=== PATIENT | female | born 1995 ===

== ENCOUNTER 2023-05-13 04:26 | Inpatient (IN) | payer OTHER ==
[2023-05-13] MEDS ORDERED: Misoprostol 200 MCG Tab PO PRN (06:04)
[2023-05-13] MEDS ORDERED: Carboprost Tromethamine 250 MCG/1 mL Vial IM PRN (06:04)
[2023-05-13] MEDS ORDERED: Methylergonovine 0.2 MG/1 ML Amp IM PRN (06:04)
[2023-05-13] MEDS ORDERED: Sodium Chloride 0.9% 10 ML Syringe FLUSH PRN (06:04)
[2023-05-13] MEDS ORDERED: Lidocaine 1% 50 ML MDV INJECT PRN (06:04)
[2023-05-13] MEDS ORDERED: Sodium Chloride 0.9% 20 ML SDV IV PRN (06:04)
[2023-05-13] MEDS ORDERED: Sodium Chloride 0.9% 2.5 ML Syringe FLUSH PRN (06:04)
[2023-05-13] MEDS ORDERED: Tranexamic Acid 1,000 MG in Sodium Chloride 0.9% 100 ML IV PRN (06:04)
[2023-05-13] MEDS ORDERED: Oxytocin/0.9 % Sodium Chloride 30 UNIT/500 ML BAG IV SCH (06:15)
[2023-05-13] MEDS ORDERED: Lidocaine 2% with EPINEPHrine 1:200,000 20 ML SDV ONE (06:18)
[2023-05-13] MEDS ORDERED: Lidocaine 1% 50 ML MDV ONE (06:18)
[2023-05-13] MEDS ORDERED: Witch Hazel Medicated Pads 40/Jar TOP PRN (06:47)
[2023-05-13] MEDS ORDERED: Lanolin 100% Cream 7 GM Tube TOP PRN (06:47)
[2023-05-13] MEDS ORDERED: Ibuprofen 400 MG Tab PO PRN (06:47)
[2023-05-13] MEDS ORDERED: Ibuprofen 800 MG Tab PO PRN (06:47)
[2023-05-13] MEDS ORDERED: Bisacodyl 10 MG Supp RECTAL PRN (06:47)
[2023-05-13] MEDS ORDERED: oxyCODONE 5 MG Tab PO PRN (06:47)
[2023-05-13] MEDS ORDERED: Benzocaine/Menthol 20%-0.5% Spray 78 GM Cannister TOP PRN (06:47)
[2023-05-13] MEDS ORDERED: Docusate Sodium 100 MG Cap PO PRN (06:47)
[2023-05-13] MEDS ORDERED: Acetaminophen 500 MG Tab PO PRN ×2 (06:47)
[2023-05-13 07:17] LABS: PH,UMBILICAL ARTERIAL 7.265 (7.18-7.38); PH,UMBILICAL VENOUS 7.243 (7.25-7.45)
[2023-05-13] MEDS ORDERED: Oxytocin 10 Units/1 ML SDV ONE (09:00)
[2023-05-13 22:46] LABS: HEMATOCRIT 39.1 % (36.0-46.0); MEAN CORPUSCULAR HEMOGLOBIN 30.4 pg (27.0-32.0); MEAN CORPUSCULAR HGB CONC 33.2 g/dL (31.0-37.0); MEAN CORPUSCULAR VOLUME 91.4 fL (80.0-98.0); MEAN PLATELET VOLUME 11.4 fL (7.40-12.00); RED BLOOD CELL COUNT 4.28 M/uL (4.30-5.90); WHITE BLOOD CELL COUNT,WBC 16.94 K/uL (4.0-11.0)
[2023-05-14 06:20] LABS: HEMATOCRIT 26.7 % (36.0-46.0); HEMOGLOBIN 8.4 g/dL (12.0-16.0)
== END 2023-05-14 13:45 | disposition home or self-care (01) | DRG 807 ==
LOC: MW.OB 04:26 → MW.OBCHECK 04:26 → MW.OB 06:04 → OBSVTOIN 06:15 → MW.OB 10:19
PROVIDERS: ADMIT Obstetrics & Gynecology; ATTEND Obstetrics & Gynecology
PROC: 10E0XZZ Delivery of Products of Conception, External Approach (ICD-10-PCS; principal; 2023-05-13)
PROC: 0KQM0ZZ Repair Perineum Muscle, Open Approach (ICD-10-PCS; 2023-05-13)
DX: O48.0 Post-term pregnancy (principal); Z37.0 Single live birth; O70.1 Second degree perineal laceration during delivery; Z3A.40 40 weeks gestation of pregnancy
CPT/HCPCS: 36415; 59409; 82803; 85014; 85018; 85027; 86592; 86850; 86900; 86901; A9270-GY; J2001; J2590